=== PATIENT | female | born 1975 | race Caucasian/White ===

== ENCOUNTER 2023-11-01 19:28 | Inpatient (IN) | payer BC ==
[~2023-11-01] VITALS: Ht 167.6 cm; Wt 89.2 kg
[2023-11-01 21:35] LABS: BASOPHILS % (AUTO) 0.5 % (0.0-2.0); EOSINOPHILS # (AUTO) 0.4 K/uL (0.0-0.7); EOSINOPHILS % (AUTO) 3.7 % (0.0-7.0); HEMATOCRIT 42.1 % (31.2-41.9); LYMPHOCYTES # (AUTO) 1.9 K/uL (0.8-4.8); LYMPHOCYTES % (AUTO) 19.6 % (20.5-51.5); MEAN CORPUSCULAR HEMOGLOBIN 29.3 uug (24.7-32.8); MEAN CORPUSCULAR HGB CONC 33 g/dL (32.3-35.6); MONOCYTES # (AUTO) 0.5 K/uL (0.1-1.30); MONOCYTES % (AUTO) 4.9 % (0.0-11.0); NEUTROPHILS # (AUTO) 6.9 K/uL (1.8-8.9); NEUTROPHILS % (AUTO) 71.3 % (38.5-71.5); PLATELET COUNT (AUTO) 383 K/uL (179-408); RED BLOOD CELL COUNT(AUTO) 4.78 MIL/uL (3.63-4.92); RED CELL DISTRIBUTION WIDTH 13.5 % (12.3-17.7); WHITE BLOOD COUNT (AUTO) 9.6 K/uL (3.8-11.8)
[2023-11-01 21:42] LABS: *BILIRUBIN,URIN NEGATIVE (NEGATIVE); *BLOOD, URINE NEGATIVE (NEGATIVE); *CLARITY,URINE CLEAR (CLEAR); *COLOR,URINE YELLOW (YELLOW); *KETONES,URINE TRACE (NEGATIVE); *PROTEIN,URINE NEGATIVE (NEGATIVE); *UROBILINOGEN,URINE 0.2 E.U./dl (NORMAL); LEUKOCYTE ESTERASE ,URINE NEGATIVE (NEGATIVE); NITRITE, URINE NEGATIVE (NEGATIVE); UGLUCOSE NEGATIVE (NEGATIVE)
[2023-11-01 21:51] LABS: CALCIUM 9.4 mg/dL (8.5-10.1); CARBON DIOXIDE 30 mmol/L (21-32); CHLORIDE 101 mmol/L (98-107); CREATININE 0.9 mg/dL (0.6-1.3); GLUCOSE 101 mg/dL (74-106); POTASSIUM 3.7 mmol/L (3.5-5.1); SODIUM SERUM 140 mmol/L (136-145); UREA NITROGEN, BLOOD 11 mg/dL (7-18)
[2023-11-01 21:53] LABS: DIFFERENTIAL COMMENT 1
[2023-11-01 21:58] LABS: PREGNANCY TEST SERUM QUAN 1 miul/L (0-6)
[2023-11-01 22:00] LABS: ALANINE AMINOTRANSFERASE 18 U/L (14-59); ALBUMIN 3.8 g/dL (3.4-5.0); ALKALINE PHOSPHATASE 78 U/L (50-136); ASPARTATE AMINOTRANSFERASE 6 U/L (15-37); BILIRUBIN,DIRECT 0.1 mg/dL (0.0-0.2); BILIRUBIN,TOTAL 0.8 mg/dL (0.2-1.0); LIPASE 29 U/L (16-77); TOTAL PROTEIN, SERUM 7.2 g/dL (6.4-8.2)
[2023-11-01] MEDS ORDERED: REMEDY ESSENTIAL ZINC PASTE 113 GM TP PRN (23:00)
[2023-11-02 00:58] VITALS: BP 125/74; TEMP 98.5; O2SAT 97
[2023-11-02] MEDS: IV D5 1/2 NS 1000 ML 1,000 ML IV PRN (01:00)
[2023-11-02] MEDS: ONDANSETRON 4 MG/2 ML VIAL IV PRN (01:45)
[2023-11-02] MEDS: PANTOPRAZOLE SODIUM 40 MG VIAL IV SCH (01:45)
[2023-11-02] MEDS: MORPHINE SULFATE 4 MG/1 ML DISP.SYRIN IV PRN (02:01)
[2023-11-02] MEDS ORDERED: FERR-68 PO (03:09)
[2023-11-02] MEDS ORDERED: ZOLP5TAB8 PO (03:09)
[2023-11-02] MEDS ORDERED: ROSU20TA2 PO (03:09)
[2023-11-02] MEDS ORDERED: LEVO50TA8 PO (03:09)
[2023-11-02] MEDS ORDERED: OMEP40CA21 PO (03:09)
[2023-11-02 06:18] VITALS: BP 118/74; TEMP 97.9; O2SAT 96
[2023-11-02 07:29] LABS: BASOPHILS # (AUTO) 0.1 K/UL (0.0-0.2); BASOPHILS % (AUTO) 0.8 % (0.0-2.0); EOSINOPHILS # (AUTO) 0.2 K/uL (0.0-0.7); EOSINOPHILS % (AUTO) 3.4 % (0.0-7.0); HEMATOCRIT 40.1 % (31.2-41.9); HEMOGLOBIN 13.5 g/dL (10.9-14.3); LYMPHOCYTES # (AUTO) 2.1 K/uL (0.8-4.8); LYMPHOCYTES % (AUTO) 31.7 % (20.5-51.5); MEAN CORPUSCULAR HEMOGLOBIN 29.7 uug (24.7-32.8); MEAN CORPUSCULAR HGB CONC 34 g/dL (32.3-35.6); MEAN CORPUSCULAR VOLUME 88.3 fL (75.5-95.3); MONOCYTES # (AUTO) 0.4 K/uL (0.1-1.30); MONOCYTES % (AUTO) 5.7 % (0.0-11.0); NEUTROPHILS # (AUTO) 3.9 K/uL (1.8-8.9); NEUTROPHILS % (AUTO) 58.4 % (38.5-71.5); PLATELET COUNT (AUTO) 344 K/uL (179-408); RED BLOOD CELL COUNT(AUTO) 4.54 MIL/uL (3.63-4.92); RED CELL DISTRIBUTION WIDTH 13.7 % (12.3-17.7); WHITE BLOOD COUNT (AUTO) 6.6 K/uL (3.8-11.8)
[2023-11-02 07:50] LABS: DIFFERENTIAL COMMENT 1
[2023-11-02 07:56] LABS: CALCIUM 8.8 mg/dL (8.5-10.1); CREATININE 0.9 mg/dL (0.6-1.3); PHOSPHOROUS 4.5 mg/dL (2.5-4.9); POTASSIUM 3.4 mmol/L (3.5-5.1)
[2023-11-02 07:58] LABS: THYROID STIMULATING HORMONE 1.419 mIU/mL (0.358-3.740)
[2023-11-02] MEDS ORDERED: POTASSIUM CHLORIDE 50 ML IV SCH (09:30)
[2023-11-02] MEDS ORDERED: MIDAZOLAM HCL 2 MG/2 ML VIAL ONE (10:03)
[2023-11-02] MEDS ORDERED: FENTANYL CITRATE 250 MCG/5 ML AMPUL ONE (10:03)
[2023-11-02] MEDS ORDERED: ROCURONIUM BROMIDE 50 MG/5 ML VIAL ONE (10:04)
[2023-11-02] MEDS ORDERED: ACETAMINOPHEN 325 MG TABLET PO PRN (11:45)
[2023-11-02] MEDS ORDERED: HYDROCODONE/APAP 5-325MG TABLET PO PRN (11:45)
[2023-11-02] MEDS ORDERED: IBUPROFEN 400 MG TABLET PO PRN (11:45)
[2023-11-02 12:00] VITALS: BP 116/76; TEMP 97.6; O2SAT 94
[2023-11-02] MEDS ORDERED: HYDROMORPHONE 1 MG/1 ML DISP.SYRIN ONE (12:33)
[2023-11-02] MEDS: POTASSIUM CHLORIDE 50 ML IV SCH (13:36)
[2023-11-02 16:08] VITALS: BP 103/56; TEMP 99; O2SAT 93
[2023-11-02 21:40] VITALS: BP 106/67; TEMP 98.4; O2SAT 98
[2023-11-03 06:45] VITALS: BP 103/71; TEMP 98.8; O2SAT 100
[2023-11-03 06:52] LABS: CALCIUM 8.8 mg/dL (8.5-10.1); CREATININE 0.8 mg/dL (0.6-1.3); POTASSIUM 4.1 mmol/L (3.5-5.1)
[2023-11-03 08:00] VITALS: BP 118/75; TEMP 98.9; O2SAT 100
== END 2023-11-03 12:05 | disposition home or self-care (01) | DRG 327 ==
LOC: ER 19:30 → MEDSURG3 22:53
PROVIDERS: ADMIT Nurse Practitioner Acute Care; ATTEND Internal Medicine
PROC: 0DP64CZ Removal of Extraluminal Device from Stomach, Percutaneous Endoscopic Approach (ICD-10-PCS; principal; 2023-11-02)
PROC: 0FB04ZX Excision of Liver, Percutaneous Endoscopic Approach, Diagnostic (ICD-10-PCS; 2023-11-02)
DX: K95.09 Other complications of gastric band procedure (principal); K31.1 Adult hypertrophic pyloric stenosis; K44.0 Diaphragmatic hernia with obstruction, without gangrene; K22.2 Esophageal obstruction; E66.9 Obesity, unspecified; Z68.32 Body mass index [BMI] 32.0-32.9, adult; E78.5 Hyperlipidemia, unspecified; E03.9 Hypothyroidism, unspecified; Z98.84 Bariatric surgery status; Y83.1 Surgical operation with implant of artificial internal device as the cause of abnormal reaction of the patient, or of later complication, without mention of misadventure at the time of the procedure; Y92.89 Other specified places as the place of occurrence of the external cause; K43.9 Ventral hernia without obstruction or gangrene; K76.0 Fatty (change of) liver, not elsewhere classified
CPT/HCPCS: 36415; 71045; 83690; 83735; 84100; 84443; 84484; 85025; 85730; 86850; 86870; 86900; 86901; 93005; A4649; A4663; C9113; G0378; J1170; J2250; J2270; J2405; J3010; J3480; J3490